=== PATIENT | male | born 1970 | race Hispanic/Latino ===

== ENCOUNTER 2021-06-25 14:18 | Emergency (ER) | payer MEDICARE ==
[~2021-06-25] VITALS: Ht 121.9 cm; Wt 54.4 kg
[2021-06-25] MEDS ORDERED: ELIQUIS2.5 MG PO (14:39)
[2021-06-25] MEDS ORDERED: FINASTERIDE5 MG PO (14:39)
[2021-06-25] MEDS ORDERED: FLOMAX0.4 MG PO (14:39)
[2021-06-25] MEDS ORDERED: COLACE100 MG PO (14:39)
[2021-06-25] MEDS ORDERED: CEPHALEXIN500 MG PO (15:09)
== END 2021-06-25 15:27 | disposition home or self-care (01) ==
LOC: FSED 14:59
DX: L02.811 Cutaneous abscess of head [any part, except face] (principal); I10 Essential (primary) hypertension; G80.9 Cerebral palsy, unspecified; D68.9 Coagulation defect, unspecified; Z79.01 Long term (current) use of anticoagulants; Z86.711 Personal history of pulmonary embolism
CPT/HCPCS: 99282

== ENCOUNTER 2022-07-30 12:54 | Emergency (ER) | payer MEDICARE ==
[~2022-07-30 12:54] MED LIST: CEPHALEXIN500 MG PO; COLACE100 MG PO; ELIQUIS2.5 MG PO; FINASTERIDE5 MG PO; FLOMAX0.4 MG PO
[2022-07-30] MEDS ORDERED: ZITHROMAX500 MG PO (14:01)
[2022-07-30] MEDS ORDERED: TAMIFLU75 MG PO (14:01)
[2022-07-30] MEDS ORDERED: [UNRECOGNIZED DRUG - SUPPLY] (14:03)
== END 2022-07-30 14:11 | disposition home or self-care (01) ==
LOC: FSED 13:21
DX: R50.9 Fever, unspecified (principal); J10.1 Influenza due to other identified influenza virus with other respiratory manifestations; J02.0 Streptococcal pharyngitis; R05.9 Cough, unspecified; G80.9 Cerebral palsy, unspecified; R53.2 Functional quadriplegia; Z99.81 Dependence on supplemental oxygen; Z86.718 Personal history of other venous thrombosis and embolism
CPT/HCPCS: 71045; 83518; 87400; 99283